=== PATIENT | male | born 1980 | race African-American/Black ===

== ENCOUNTER 2020-04-17 19:31 | Emergency (ER) | payer SELFPAY ==
[2020-04-17 19:46] VITALS: BP 167/90; PULSE 88; RESP 17; TEMP 36.8; O2SAT 100
--- NOTE | 2020-04-17 22:03 | ED.EYEPROB ---
HPI - Eye Problem General Chief complaint: Eye Problems Stated complaint: left eye pain, visual difficulty Time Seen by Provider: 04/17/20 21:24 Source: patient Mode of arrival: ambulatory History of Present Illness HPI Narrative: This patient is a 39 year old male who presents for evaluation of left eye pain and blurred vision. He states he developed left eye redness, watery eyes 5 days ago. He also reports he developed blurred vision in his left eye. He wears contact lens but he has not worn the lens in his left eye since Wednesday. He states he has developed migraine headache. chief complaint: eye pain and vision change Onset (ago): day(s) (5) Related Data Home Medications Medication Instructions Recorded Confirmed njheyyfg-ztb-hpyys-vit K-lycop 1 tablet PO 04/17/20 [Men's Multivitamin] omega 1-nys-rqf-fish oil [Fish Oil] 1 cap PO DAILY 04/17/20 Allergies Allergy/AdvReac Type Severity Reaction Status Date / Time No Known Allergies Allergy Verified 04/17/20 19:45 Review of Systems Review of Systems: All systems reviewed & are unremarkable except as noted in HPI and below [facility] Past Medical History Medical History (Updated 04/18/20 @ 04:34 by Renetta Ching MD) Hypertension Social History Social History Gender identity (if verbalized by the patient): Male Exam Const: General: alert Orientation/consciousness: patient oriented x3 HENMT: Mouth: Yes lip normal Other: visual acuity right eye 20/50 both eye 20/50 , left eye just can see object, Eyes: Conjunctivae: conjunctival abnormality left conjunctival injection EOM: EOMs intact bilaterally Direct Ophthalmoscopy: photophobia Other: white lesion mid cornea to left eye, Chest: Chest palpation & inspection: normal inspection of the chest Resp: Effort & Inspection: normal respiratory effort Auscultation: clear to auscultation bilaterally Cardio: Rate: regular rate Course Reevaluation(s) Reevaluation #1: PAtient is awaiting ambulance to take patient to ER at [facility] for evlauation by ophthalmology. Care turned over to dr. Alejandre while patient awaits ambulance Date: 04/18/20 Time: 07:27 Consultations Consultation #1: I spoke to retail loss prevention investigator at [facility] (Dr. Granados). He states they unable to accepts patient to ER so he recommends transfer to another facility. Date: 04/17/20 Time: 23:19 Consultation #2: I spoke with Dr. Ramos with [facility]. He is agreeable to see patient if he is accepted to ER. [facility] is on limitation. Date: 04/17/20 Time: 23:37 Consultation #3: I discussed case with Dr. Santacruz in [facility] and they accepts patient to ER to See ophthalmology. Date: 04/18/20 Time: 02:30 Vital Signs Vital signs: Vital Signs Temperature 98.3 F 04/17/20 19:46 Pulse Rate 88 04/17/20 19:46 Respiratory Rate 17 04/17/20 19:46 Blood Pressure 167/90 H 04/17/20 19:46 Pulse Oximetry 100 04/17/20 19:46 Temperature 98.1 F 04/18/20 04:24 Pulse Rate 74 04/18/20 07:15 Respiratory Rate 16 04/18/20 07:15 Blood Pressure 146/109 H 04/18/20 07:15 Pulse Oximetry 100 04/18/20 07:15 Critical Care Time Critical Care Time Critical Care Time: Yes Total Critical Care Time: 35 Discharge Plan Discharge Clinical Impression: Corneal ulcer Qualifiers: Laterality: left Qualified Code(s): H16.002 - Unspecified corneal ulcer, left eye Patient Disposition: Acute Care Hospital Condition: Stable Prescriptions: No Action omega 9-ibp-zhj-fish oil [Fish Oil] 1,000 mg (120 mg-180 mg) Capsule 1 cap PO DAILY RF: 0 Men's Multivitamin 400-20-300 mcg Tablet 1 tablet PO RF: 0 Follow-up/Referrals: PHYSICIAN,DESIGN TECH [Primary Care Provider] -
[2020-04-17] MEDS: CIPROFLOXACIN HCL 0.3% OP SOLN 2.5 ML BTL 2 DROP EACH EYE (22:31)
[2020-04-18] VITALS: BP 161/85; PULSE 78; RESP 18; O2SAT 98
--- NOTE | 2020-04-18 02:33 | PC.NURSE ---
Called [facility] to transport patient to [facility]. ETA [id number]
--- NOTE | 2020-04-18 02:36 | PC.NURSE ---
Called [facility] to transport patient to [place]. declined
--- NOTE | 2020-04-18 02:37 | PC.NURSE ---
Called [facility] to request transport. [facility] declined.
--- NOTE | 2020-04-18 02:41 | PC.NURSE ---
Called [facility] to request transport. [facility] decline. -Does not have the resources.
--- NOTE | 2020-04-18 03:58 | PC.NURSE ---
[facility] called to update ETA to [id number]
[2020-04-18 04:24] VITALS: BP 141/88; PULSE 69; RESP 16; TEMP 36.7; O2SAT 99
--- NOTE | 2020-04-18 05:05 | PC.NURSE ---
[facility] called to update ETA to [phone]
--- NOTE | 2020-04-18 05:58 | PC.NURSE ---
[facility] called to update ETA to [phone]
[2020-04-18 07:15] VITALS: BP 146/109; PULSE 74; RESP 16; O2SAT 100
== END 2020-04-18 07:42 | disposition short-term general hospital (02) ==
PROVIDERS: Emergency Provider General Practice
DX: H16.002 Unspecified corneal ulcer, left eye (principal); I10 Essential (primary) hypertension
CPT/HCPCS: 99285